=== PATIENT | female | born 1990 | race Caucasian/White ===

== ENCOUNTER 2021-07-17 21:32 | Emergency (ER) | payer SELFPAY ==
[~2021-07-17] VITALS: Ht 167.6 cm; Wt 77.9 kg
[2021-07-17] MEDS ORDERED: TETanus/Pertussis (Acell)/Diphther VAC/PF (Tdap-Adult) 0.5ml syringe IMVAC ONE (22:25)
--- NOTE | 2021-07-18 00:57 | NUR ---
PATIENT SEEN BY MD, WOUND CLEANED AND SUTURED. dt GIVEN. WOUND DRESSED. DISCH TO HOME WITH PATIENTS MOTHER DRIVING. PATIENT EXHIBITS UNDERSTANDING OF DISCH INST.
[2021-07-18 01:00] VITALS: BP 139/82
== END 2021-07-18 01:02 | disposition home or self-care (01) ==
LOC: ER 21:33
DX: S61.211A Laceration without foreign body of left index finger without damage to nail, initial encounter (principal); W26.0XXA Contact with knife, initial encounter; Y93.89 Activity, other specified; Y92.89 Other specified places as the place of occurrence of the external cause; Y99.8 Other external cause status
CPT/HCPCS: 12001; 90471; 90715; 99283